=== PATIENT | female | born 1955 | race Caucasian/White ===

== ENCOUNTER → 2023-10-01 08:48 | Outpatient (REF) | payer MEDICARE, BC, SELFPAY ==
[2023-10-01 10:04] LABS: % Basophils 0.6 % (0-2); % Eosinophils 0.9 % (0-6); % Immature Granulocytes 0.1 % (0-0.5); % Lymphocytes 27.5 % (20.5-51.1); % Monocytes 5.5 % (1.7-9.3); % Neutrophils 65.4 % (42.2-75.2); Absolute Eosinophils 0.1 10^3/uL (0-0.7); Absolute Lymphocytes 1.8 10^3/uL (1.2-3.4); Absolute Monocytes 0.4 10^3/uL (0.1-0.6); Absolute Neutrophils 4.4 10^3/uL (1.4-6.5); Hematocrit 47.6 % (37.0-47.0); Hemoglobin 15.7 g/dL (12.0-16.0); Mean Corpuscular Hgb 29.3 pg (27.0-31.0); Mean Platelet Volume 9.5 fL (7.4-10.4); Nucleated Red Blood Cells % 0 %; Platelet Count 241 10^3/uL (130-400); Red Blood Cell Count 5.35 10^6/uL (4.20-5.40); Red Cell Dist. Width 12.5 % (11.5-14.5); White Blood Cell Count 6.7 10^3/uL (4.8-10.8)
[2023-10-01 10:15] LABS: ALT (SGPT) 27 U/L (0-35); AST (SGOT) 29 U/L (14-36); Albumin 4.6 g/dl (3.5-5.0); Alkaline Phosphatase 94 U/L (38-126); Blood Urea Nitrogen 24 mg/dl (7-17); Calcium 9.7 mg/dl (8.4-10.2); Carbon Dioxide 24 mmol/L (22-30); Chloride 106 mmol/L (98-107); GGTP 17 U/L (12-43); Glucose 150 mg/dl (70-99); Potassium 4.4 mmol/L (3.5-5.1); Sodium 139 mmol/L (135-145); Total Bilirubin 0.7 mg/dl (0.2-1.3); Total Protein 7.1 g/dl (6.3-8.2); eGFR > 60.00
[2023-10-01 10:48] LABS: Glycohemoglobin (HgbA1c) 7.9 % (4.0-5.6)
[2023-10-01 11:30] LABS: Erythrocyte Sed Rate 10 mm/hour (0-20)
== END ==
LOC: REG 08:48
PROVIDERS: ATTENDING PHYSICIAN Family Medicine
DX: E11.3213 Type 2 diabetes mellitus with mild nonproliferative diabetic retinopathy with macular edema, bilateral (principal); K76.0 Fatty (change of) liver, not elsewhere classified; M15.9 Polyosteoarthritis, unspecified
CPT/HCPCS: 36415; 80053; 82977; 83036; 83525; 83735; 85025; 85652; 86140

== ENCOUNTER → 2023-12-05 13:12 | Outpatient (REF) | payer MEDICARE, BC, SELFPAY | LOC: RCS 13:12 | PROVIDERS: ATTENDING PHYSICIAN Internal Medicine Interventional Cardiology; FAMILY PHYSICIAN Family Medicine | DX: Z01.818 Encounter for other preprocedural examination (principal); R94.31 Abnormal electrocardiogram [ECG] [EKG] | CPT/HCPCS: 93306 ==

== ENCOUNTER 2023-12-12 09:10 | Inpatient (IN) | payer MEDICARE, BC, SELFPAY ==
--- NOTE | 2023-11-07 11:42 | CM ---
Addendum entered by Toyin Smyth 11/30/23 10:23:
Patient has not yet watched the education video and was reminded to do so.
Original Note:
Patient is scheduled for an elective L TKR on 06/26/23. Spoke with patient prior to surgery via telephone. Introduced role of Orthopedic Navigator. Patient reports that she lives with her and her son (who is developmentally delayed) in a two
story home. There are two steps to enter and a flight of steps to the second floor. She currently functions independently and uses a rolling walker in the house and a cane outside. She has no other DME and has never had VN services. PCP is Amando
Leandra.
Discussed orthopedic program and post surgical plans. Reviewed anticipated length of stay and that goal is for her to return home at discharge. Also reviewed outpatient PT. Patient is in agreement with tentative plan and will go directly to
outpatient PT at [facility]. She will have support from her when she goes home.
Patient will complete online education.
Plan: Orthopedic Navigator will remain available to assist with the care of patient and will reassess discharge needs after surgery.
[2023-11-18 12:37] VITALS: BMI 38.4
[2023-11-18 13:38] LABS: Hematocrit 42.7 % (37.0-47.0); Hemoglobin 14.2 g/dL (12.0-16.0); Mean Corp Hgb Conc. 33.3 g/dL (33.0-37.0); Mean Corpuscular Volume 90.3 fL (81.0-99.0); Mean Platelet Volume 10.8 fL (7.4-10.4); Platelet Count 217 10^3/uL (130-400); Red Blood Cell Count 4.73 10^6/uL (4.20-5.40); Red Cell Dist. Width 12.9 % (11.5-14.5); White Blood Cell Count 8.3 10^3/uL (4.8-10.8)
[2023-11-18 13:48] LABS: ALT (SGPT) 26 U/L (0-35); AST (SGOT) 30 U/L (14-36); Albumin 4.6 g/dl (3.5-5.0); Alkaline Phosphatase 75 U/L (38-126); Blood Urea Nitrogen 24 mg/dl (7-17); Calcium 9.7 mg/dl (8.4-10.2); Carbon Dioxide 23 mmol/L (22-30); Chloride 105 mmol/L (98-107); Estimated Creatinine Clearance 95 ml/min; Glucose 119 mg/dl (70-99); Potassium 4.3 mmol/L (3.5-5.1); Sodium 138 mmol/L (135-145); Total Bilirubin 1.1 mg/dl (0.2-1.3); eGFR > 60.00
--- NOTE | 2023-11-18 14:36 | PTCARENOTE ---
Patients 11/17 ECG abnormal- Syeda @ Dr. Baker office notified
[2023-11-19 09:49] LABS: Glycohemoglobin (HgbA1c) 6.3 % (4.0-5.6)
--- NOTE | 2023-11-22 14:01 | PTCARENOTE ---
Abn ECG, Dr. Wall notified, no further actions requested.
[2023-12-08 09:26] VITALS: BMI 38.4
[2023-12-12] VITALS (15 sets, daily range): BP systolic 89–137; BP diastolic 34–69; PULSE 78; O2SAT 95
[2023-12-12 08:01] LABS: Glucose - Point of Care 178 mg/dl (70-99)
[2023-12-12] MEDS: NORMOSOL-R 1000 IV ×2 (08:02→12:05)
[2023-12-12] MEDS: CELEBREX 200 MG PO (08:02)
[2023-12-12] MEDS: TYLENOL 650 MG PO ×4 (08:02→20:11)
[2023-12-12 11:40] LABS: Glucose - Point of Care 145 mg/dl (70-99)
[2023-12-12] MEDS: ROXICODONE 5 MG PO ×2 (12:07→15:06)
--- NOTE | 2023-12-12 12:39 | W.DS.TRANS ---
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
-
Discharge Instructions:
Sleep Apnea Risk Low
Discharge Diagnosis/Procedures R ZAIRE Baker 12/12/23
Diet Diabetic, Carb Controlled
Activity With Walker
Driving Restrictions No driving
Bathing Restrictions OK to Shower
Other Services PT
Instructions:
Stand-Alone Forms:
Changes to Home Medications: Yes
Discharge Medications:
DC Medications w/original date entered in [employer]
Choleast Red Yeast Rice 1,200 mg PO BID 12/05/23
Nutrafol Womens Balance 4 cap PO DAILY 12/05/23
Vitamin D3 +A +K2+E 5,000 units PO DAILY 12/05/23
blood-glucose sensor ([employer] G7 Sensor device) 12/05/23
empagliflozin 25 mg tablet (Jardiance) 25 mg PO DAILY 12/05/23
escitalopram oxalate 10 mg tablet 10 mg PO DAILY 12/05/23
insulin NPH human semi-syn 100 unit/mL subcutaneous suspension 0 unit SC BID PRN blood glucose 12/05/23
magnesium glycinate 240 mg PO QPM 12/05/23
multivitamin 1 cap PO DAILY 12/05/23
repaglinide 2 mg tablet 4 mg PO TID 12/05/23
zinc 1 cap PO DAILY 12/05/23
Culturelle Probiotics 1 cap PO BID twice a day while on Cefadroxil ##0 12/12/23
aspirin 325 mg tablet 325 mg PO DAILY blood clot prevention #1 tab 12/12/23
cefadroxil 500 mg capsule 500 mg PO BID infection prevention #14 caps 12/12/23
celecoxib 200 mg capsule 200 mg PO DAILY anti-inflammatory #14 caps 12/12/23
docusate sodium 100 mg capsule (Colace) 100 mg PO BID stool softner #1 cap 12/12/23
magnesium hydroxide 400 mg/5 mL oral suspension (Milk of Magnesia) 30 ml PO HS PRN Constipation #1 mL 12/12/23
ondansetron 4 mg disintegrating tablet 4 mg PO Q6H PRN n/v #20 tabs 12/12/23
oxycodone 5 mg tablet 5 mg PO Q6H PRN 1 tab moderate pain, 2 tabs severe pain #30 tabs 12/12/23
Home Medication Changes
cefadroxil 500 mg capsule 500 mg PO BID infection prevention #14 caps 12/12/23�
celecoxib 200 mg capsule 200 mg PO DAILY anti-inflammatory #14 caps 12/12/23�
ondansetron 4 mg disintegrating tablet 4 mg PO Q6H PRN n/v #20 tabs 12/12/23�
oxycodone 5 mg tablet 5 mg PO Q6H PRN 1 tab moderate pain, 2 tabs severe pain #30 tabs 12/12/23�
Pending Results: No
--- NOTE | 2023-12-12 12:43 | PTCARENOTE ---
received patient from PACU, admitted to room 2109. Pt AAOX3. pt denies pain. sensation intact in bilateral lower extremities. Right knee with dressing intact, small amount of old drainage noted, marked. pt denies urge to void at this time.
hypoactive bowel sounds, denies nausea. pt on 2L nasal cannula. lung sounds diminished in bases. see worklist for full nursing assessment.
[2023-12-12] MEDS: LANTUS 0.08 UNITS SC (13:25)
[2023-12-12] MEDS: JARDIANCE 25 MG PO (13:25)
[2023-12-12] MEDS: LEXAPRO 10 MG PO (13:25)
[2023-12-12] MEDS: NEURONTIN 300 MG PO ×2 (15:07→21:59)
[2023-12-12] MEDS: PRANDIN 4 MG PO ×2 (16:59→21:56)
[2023-12-12] MEDS: ASPIRIN 325 MG PO (17:00)
[2023-12-12] MEDS: ANCEF 5 IV (17:00)
[2023-12-12] MEDS: NOVOLOG FLEXPEN-MODERATE RESISTANCE 1 UNITS SC (17:03)
[2023-12-12 17:09] LABS: Glucose - Point of Care 199 mg/dl (70-99)
[2023-12-12] MEDS: DILAUDID 0.5 MG IV (17:15)
[2023-12-12] MEDS: BACTROBAN 2% OINTMENT 1 APPLIC NASAL (20:10)
[2023-12-12] MEDS: SENOKOT 17.2 MG PO (20:10)
[2023-12-12] MEDS: COLACE 100 MG PO (20:10)
[2023-12-12] MEDS: TORADOL 15 MG IV (20:11)
[2023-12-12 21:10] LABS: Glucose - Point of Care 175 mg/dl (70-99)
[2023-12-12] MEDS: PEPCID 20 MG PO (21:59)
[2023-12-13] MEDS: TYLENOL PO (00:32)
[2023-12-13] MEDS: ANCEF 5 IV (01:58)
[2023-12-13 03:39] VITALS: BP 101/57
[2023-12-13] MEDS: TYLENOL 650 MG PO ×3 (04:02→11:17)
[2023-12-13 07:22] LABS: Glucose - Point of Care 126 mg/dl (70-99)
[2023-12-13 07:40] VITALS: BP 99/51
[2023-12-13] MEDS: NOVOLOG FLEXPEN-MODERATE RESISTANCE SC (07:49)
[2023-12-13] MEDS: ASPIRIN 325 MG PO (08:06)
[2023-12-13] MEDS: NEURONTIN 300 MG PO (08:06)
[2023-12-13] MEDS: PRANDIN 4 MG PO (08:06)
[2023-12-13] MEDS: SENOKOT 17.2 MG PO (08:07)
[2023-12-13] MEDS: LANTUS 0.08 UNITS SC (08:07)
[2023-12-13] MEDS: COLACE 100 MG PO (08:07)
[2023-12-13] MEDS: JARDIANCE 25 MG PO (08:07)
[2023-12-13] MEDS: CELEBREX 200 MG PO (08:07)
[2023-12-13] MEDS: LEXAPRO 10 MG PO (08:07)
[2023-12-13] MEDS: TORADOL 15 MG IV (08:07)
[2023-12-13] MEDS: BACTROBAN 2% OINTMENT 1 APPLIC NASAL (08:07)
--- NOTE | 2023-12-13 08:21 | CM ---
Addendum entered by Toyin Smyth 12/13/23 10:18:
Patient did well in therapy. She has no concerns about going home and has updated her .
Original Note:
Reviewed chart and held rounds with PT, OT and nursing. Patient admitted as planned for elective R TKR. Met with patient at bedside. Confirmed information previously obtained for assessment. Also discussed discharge plans. The plan is for patient to
return home at discharge. Her will be home with her for a week. Patient will go directly to outpatient PT and will go to [facility]. She has an appointment scheduled for Tuesday, 12/13.
Patient has all needed DME.
She will use [facility] pharmacy if additional discharge prescriptions are needed.
[2023-12-13 09:30] VITALS: BP 118/55; PULSE 91; O2SAT 94
[2023-12-13 10:09] VITALS: BP 131/60; PULSE 89; O2SAT 94
--- NOTE | 2023-12-13 10:19 | W.PN.ORTHO ---
Today's Communication / Plan
-
d/c
Assessment
.
Distal Motor Intact: Yes
Dressing:
Clean, dry and intact.
Assessment:
Deoclccoavn-bzh-Aavcjwybf x1 dose + NSS IVF bolus prior to d/c to prevent orthostasis at home given need for opioid
Plan
.
Surgery / Date: James Baker 12/12/23
DVT Prophylaxis: Aspirin
Activity:
Out of bed.
PT/OT
Discharge Plan: Home w/ Outpatient PT
Subjective
.
.:
Patient resting comfortably.
Vital Signs and Labs
.
Vital Signs and Labs:
Lab Results
11/18/23 12:28
11/18/23 12:28
Temp Pulse Resp BP Pulse Ox
97.9 F 97 20 99/51 99
12/13/23 07:40 12/13/23 07:40 12/13/23 07:40 12/13/23 07:40 12/13/23 07:40
Non-invasive Hgb result: 12.6
Physical Exam
-
HEENT: No pallor, cyanosis, or jaundice. Throat clear.
NECK: Supple. No JVD.
RESPIRATORY: Lungs clear to auscultation.
CVS: S1, S2 normal. RRR.� No murmur, rub or gallop.
ABDOMEN: Soft, non-tender. No distension. BS+/normal.
EXTREMITIES: strength equal, no calf pain with palpation
BORDER MEASURER: AOx3. No focal deficits. 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
[2023-12-13] MEDS: ProAmatine 5 MG PO (10:36)
[2023-12-13] MEDS: NSS 250 IV (10:37)
[2023-12-13 11:04] VITALS: BP 137/63
[2023-12-13] MEDS: ROXICODONE 5 MG PO (11:17)
[2023-12-13 12:11] LABS: Glucose - Point of Care 219 mg/dl (70-99)
== END 2023-12-13 12:13 | disposition home or self-care (01) | DRG 470 ==
LOC: 2 SOUTH 09:10
PROVIDERS: Anesthesiology; ADMITTING PHYSICIAN Specialist; FAMILY PHYSICIAN Family Medicine
PROC: 0SRC0J9 Replacement of Right Knee Joint with Synthetic Substitute, Cemented, Open Approach (ICD-10-PCS; 2023-12-12)
PROC: 3E0T3BZ Introduction of Anesthetic Agent into Peripheral Nerves and Plexi, Percutaneous Approach (ICD-10-PCS; 2023-12-12)
DX: M17.11 Unilateral primary osteoarthritis, right knee (principal); Z68.36 Body mass index [BMI] 36.0-36.9, adult; E66.9 Obesity, unspecified; E78.5 Hyperlipidemia, unspecified; E11.9 Type 2 diabetes mellitus without complications; K21.9 Gastro-esophageal reflux disease without esophagitis; K76.0 Fatty (change of) liver, not elsewhere classified; M81.0 Age-related osteoporosis without current pathological fracture; I95.9 Hypotension, unspecified; Z79.82 Long term (current) use of aspirin
CPT/HCPCS: 36415; 73560; 80053; 82962; 83036; 85027; 87070; 93005; 97110; 97116; 97162; 97166; 97530; C1713; C1776

== ENCOUNTER → 2024-02-04 09:10 | Outpatient (REF) | payer MEDICARE, BC, SELFPAY ==
[2024-02-04 10:24] LABS: % Basophils 0.6 % (0-2); % Immature Granulocytes 0.4 % (0-0.5); % Lymphocytes 18.1 % (20.5-51.1); % Monocytes 7.2 % (1.7-9.3); % Neutrophils 72.7 % (42.2-75.2); Absolute Eosinophils 0.1 10^3/uL (0-0.7); Absolute Lymphocytes 1.3 10^3/uL (1.2-3.4); Absolute Monocytes 0.5 10^3/uL (0.1-0.6); Absolute Neutrophils 5.2 10^3/uL (1.4-6.5); Hematocrit 43.8 % (37.0-47.0); Hemoglobin 14.5 g/dL (12.0-16.0); Mean Corp Hgb Conc. 33.1 g/dL (33.0-37.0); Mean Corpuscular Hgb 30.2 pg (27.0-31.0); Mean Corpuscular Volume 91.3 fL (81.0-99.0); Mean Platelet Volume 10.3 fL (7.4-10.4); Nucleated Red Blood Cells % 0 %; Platelet Count 262 10^3/uL (130-400); Red Cell Dist. Width 12.6 % (11.5-14.5); White Blood Cell Count 7.1 10^3/uL (4.8-10.8)
[2024-02-04 10:48] LABS: ALT (SGPT) 16 U/L (0-35); AST (SGOT) 26 U/L (14-36); Albumin 4.6 g/dl (3.5-5.0); Alkaline Phosphatase 70 U/L (38-126); Blood Urea Nitrogen 21 mg/dl (7-17); Carbon Dioxide 20 mmol/L (22-30); Chloride 104 mmol/L (98-107); Glucose 150 mg/dl (70-99); HDL Cholesterol 56 mg/dl; LDL Cholesterol, Calculated 150 mg/dl; Sodium 142 mmol/L (135-145); Total Bilirubin 0.9 mg/dl (0.2-1.3); Total Cholesterol 226 mg/dl (50-199); Triglyceride 103 mg/dl (10-149); Very Low Density Lipoprotein 20 mg/dl (0-30); eGFR > 60.00
[2024-02-04 13:24] LABS: Glycohemoglobin (HgbA1c) 5.7 % (4.0-5.6)
[2024-02-06 16:33] LABS: Insulin, Random 19 uIU/mL
== END ==
LOC: REG 09:10
PROVIDERS: ATTENDING PHYSICIAN Family Medicine
DX: E11.3213 Type 2 diabetes mellitus with mild nonproliferative diabetic retinopathy with macular edema, bilateral (principal); E78.2 Mixed hyperlipidemia
CPT/HCPCS: 36415; 80053; 80061; 83036; 83525; 85025

== ENCOUNTER → 2024-02-14 11:52 | Outpatient (REF) | payer MEDICARE, BC, SELFPAY ==
[2024-02-14 14:14] LABS: Fibrinogen 466 MG/DL (199-459)
[2024-02-14 14:17] LABS: D-Dimer 1.95 ug/mlFEU (0.00-0.50)
== END ==
LOC: REG 11:52
PROVIDERS: ATTENDING PHYSICIAN Family Medicine
DX: I80.01 Phlebitis and thrombophlebitis of superficial vessels of right lower extremity (principal)
CPT/HCPCS: 36415; 85379; 85384

== ENCOUNTER → 2024-06-04 06:33 | Outpatient (REF) | payer MEDICARE, BC, SELFPAY | LOC: MRI 3T 06:33 | PROVIDERS: ATTENDING PHYSICIAN Orthopaedic Surgery; FAMILY PHYSICIAN Family Medicine | DX: M25.512 Pain in left shoulder (principal) | CPT/HCPCS: 73221 ==

== ENCOUNTER 2024-07-22 12:38 | Emergency (ER) | payer MEDICARE, BC, SELFPAY ==
[2024-07-22 12:44] VITALS: BP 148/76
--- NOTE | 2024-07-22 14:22 | ED.GENMED ---
History of Present Illness
General
Chief Complaint: Back Pain
Source: patient
Exam Limitations: none
Time Seen by Provider: 07/22/24 14:03
History of Present Illness
History of Present Illness:
69yoF with a history of type 2 diabetes and obesity presenting with her for evaluation of back pain. She had a fall 6 days ago in which she slipped in the kitchen and landed on her back. She struck her head but denies any loss of
consciousness. She has been having significant lower back pain since the fall. She is having difficulty getting around and she has been using a walker due to her pain. Her has also been assisting her with position changes. Patient also
endorses lower abdominal pain and constipation. She also reports pain in her lower ribs bilaterally and is having pain with coughing. She was initially taking Tylenol without relief. She has been taking leftover Vicodin the past few days with some
improvement. She denies any difficulty urinating, incontinence, fevers.
Past History
Past History
ED Past Medical History: IDDM
ED Past Surgical History: Appendectomy and Cholecystectomy
Social History
Tobacco: Non-smoker
Alcohol: None
Personal:
Living: with family
Phy Exam
General Physical Exam
General Presentation: well appearing
General age: appears stated age
General Skin: warm and dry
General Habitus: normal
General Mental: alert
ENT Exam
ENT Exam: normocephalic
Additional ENT: No external signs of head trauma
Pulmonary Exam
Pulmonary Exam: lungs clear, no respiratory distress, no rales, no crackles, no rhonchi and other (+Tenderness to lower ribcage bilaterally. No crepitus or skin changes. Breath sounds equal bilaterally.)
Gastrointestinal Exam
Gastrointestinal Exam: soft, non distended and other (+Mild lower abdominal tenderness. Abdomen soft, non-distended. No rebound or guarding.)
Neurological Exam
Neurological Exam: alert
[place] Coma Scale
Eye Opening: Spontaneous
Verbal Response: Oriented
Motor Response: Obeys Commands
GCS Total Score: 15
Musculoskeletal Exam
Musculoskeletal Exam: other (+Lumbar spine tenderness without step-offs)
Skin Exam
Skin Exam: normal color and warm/dry
Psychiatric Exam
Psychiatric Exam: normal mood/affect
Course
Orders/Labs/Results
Orders:
Orders
07/22/24 14:21
CT Abd/pelvis W Iv Cont Urgent
Comment:
Reason For Exam: Low back pain, lower abd pain s/p fall
HYDROmorphone [Dilaudid] 0.5 mg IV NOW STA
Hip, Right 2-3 Views [CR Hip - RT w/wo Pel 2-3 Vw*] Urgent
Comment:
Reason For Exam: R hip pain, fall
Include a pelvis x-ray?: Yes
07/22/24 14:22
CR Chest - 2 Views Urgent
Comment:
Reason For Exam: bilateral lower rib pain, fall
07/22/24 14:35
Complete Blood Count/With Diff Urgent
Comprehensive Metabolic Panel Urgent
07/22/24 17:36
Incentive Spirometry [Rx Incentive Spirometry] [RESP] Urgent
Frequency: q1h while awake
Abnormal Lab Results
07/22/24
14:35
Abs Immat Gran (auto) 0.1 H 10^3/uL
(0-0.05)
Immature Gran % 0.6 H %
(0-0.5)
Lymphocytes % 18.6 L %
(20.5-51.1)
BUN 22 H mg/dl
(7-17)
Glucose 106 H mg/dl
(70-99)
Total Bilirubin 1.4 H mg/dl
(0.2-1.3)
07/22/24 14:35
07/22/24 14:35
Vital Signs
Initial and Last Documented VS:
Initial Vital Signs
Temp Pulse Resp BP Pulse Ox
98.2 F 99 18 148/76 98
07/22/24 12:44 07/22/24 12:44 07/22/24 12:44 07/22/24 12:44 07/22/24 12:44
Last Documented Vital Signs
Temp Pulse Resp BP Pulse Ox
98.2 F 99 18 148/76 98
07/22/24 12:44 07/22/24 12:44 07/22/24 12:44 07/22/24 12:44 07/22/24 12:44
MDM/Problems Addressed
Differential Diagnosis Includes:
69yoF here after a mechanical fall 6 days ago. Landed on back. Multiple complaints but most of her pain is located in the lumbar region. VSS. There is lumbar tenderness on exam without step-offs or skin changes. Differential diagnosis includes but
is not limited to: soft tissue injury, fracture, intra-abdominal injury
Initial ED plan: Check CBC, CMP, CXR, R hip x-rays, and CT abdomen. IV Dilaudid for pain.
*Critical Care Note
Total Time (30-74mins, 75-104mins- exclusive of procedures): Not Applicable
Update Note
Update Note:
CT abdomen shows mild partial L1 and L2 superior endplate compression fractures which are age indeterminate but likely old. No other traumatic injuries on CT. CXR reveals 'Small ill-defined opacity in the right midlung which could represent
subsegmental atelectasis/pulmonary contusion and cannot exclude adjacent right lateral rib fracture.' Oxygen saturation 98% on room air and injury was almost a week ago, no indication for chest CT at this time as it is unlikely to change advisor.
Pain improved on reassessment and she was able to ambulate to the bathroom with assistance from her . No indication for hospitalization. Incentive spirometer provided and prescription given for Vicodin. She was advised to f/u with her PCP and
orthopedics. Patient in agreement with plan and was discharged in stable condition.
ED Attending Note
-
Portions of this chart may have been created with voice recognition software.� Occasional wrong word or��sound alike� substitutions may have occurred due to the inherent limitations of voice recognition software.
Discharge Plan
Departure
Patient Disposition: Home (Routine Discharge)
Date of Disposition: 07/22/24
Time of Disposition: 17:35
Patient with high blood pressure during this ER visit?: Yes
Discharge Problem:
Fall from slip, trip, or stumble, Acute low back pain, Closed fracture of rib of right side
Instructions: Low Back Pain (DC), Rib fracture or bruised rib - ED discharge instructions
Prescriptions:
New
hydrocodone-acetaminophen 5-325 mg tablet
1 tab PO Q6H PRN (Reason: Pain) Qty: 12 0RF
No Action
repaglinide 2 mg Tablet
4 mg PO TID
Rx Instructions:
15 to 30 minutes before meals
multivitamin Capsule
1 cap PO DAILY
Rx Instructions:
after breakfast
insulin NPH human semi-syn 100 unit/mL Suspension
0 unit SC BID PRN (Reason: blood glucose)
Rx Instructions:
Breakfast and Dinner dosing based on need
escitalopram oxalate 10 mg Tablet
10 mg PO DAILY
(DME) Dexcom G7 Sensor Device
MISCELLANEOUS
Jardiance 25 mg Tablet
25 mg PO DAILY
Choleast Red Yeast Rice 600 mg capsule
1,200 mg PO BID
Rx Instructions:
with food
Nutrafol Womens Balance
4 cap PO DAILY
Rx Instructions:
after breakfast
Vitamin D3 +A +K2+E
5,000 units PO DAILY
magnesium glycinate 120 mg capsule
240 mg PO QPM
zinc 54 mg capsule
1 cap PO DAILY
Rx Instructions:
after breakfast
celecoxib 200 mg capsule
200 mg PO DAILY Qty: 14 0RF
Rx Instructions:
*take with food
*space out 2 hours from aspirin
aspirin 325 mg tablet
325 mg PO DAILY Qty: 1 0RF
Rx Instructions:
Take with food
cefadroxil 500 mg capsule
500 mg PO BID Qty: 14 0RF
Rx Instructions:
*Take w/ food
*Take w/ probiotic
*POST-OP USE
magnesium hydroxide [Milk of Magnesia] 400 mg/5 mL suspension
30 ml PO HS PRN (Reason: Constipation) Qty: 1 0RF
docusate sodium [Colace] 100 mg capsule
100 mg PO BID Qty: 1 0RF
ondansetron [ondansetron] 4 mg tablet,disintegrating
4 mg PO Q6H PRN (Reason: n/v) Qty: 20 0RF
Rx Instructions:
take 1/2h b/f pain med if recurrent nausea
allow to dissolve in mouth w/o water
oxycodone 5 mg tablet
5 mg PO Q6H PRN (Reason: 1 tab moderate pain, 2 tabs severe pain) Qty: 30 0RF
Rx Instructions:
Ongoing therapy
Culturelle Probiotics
1 cap PO BID Qty: 0 0RF
Rx Instructions:
after breakfast
Referrals:
Amando Mobley DO [Family Provider] -
León Rose MD [Active] -
Activity Restrictions/Additional Instructions:
Take Vicodin as needed for severe pain. Use incentive spirometer every hour while awake.
Please call tomorrow to schedule follow-up appointments with your family doctor and orthopedics. Return to the ER with any new or worsening symptoms.
Interventions
Interventions:
*Risk Screen - Suicide Last Done: 07/22/24 12:44
*General Assessment Last Done: 07/22/24 12:44
*ED COVID-19 Vaccine History Last Done: 07/22/24 12:44
*Nursing Disposition Last Done: 07/22/24 18:08
ED-Musculoskeletal Assessment Last Done: 07/22/24 15:00
Discharge Date and Time
Discharge Date/Time: 07/22/24 18:08
Print Language: [place]
[2024-07-22] MEDS: DILAUDID 0.5 MG IV (14:28)
[2024-07-22 15:00] LABS: % Basophils 0.5 % (0-2); % Eosinophils 0.9 % (0-6); % Immature Granulocytes 0.6 % (0-0.5); % Lymphocytes 18.6 % (20.5-51.1); % Neutrophils 72.4 % (42.2-75.2); Absolute Eosinophils 0.1 10^3/uL (0-0.7); Absolute Immature Granulocytes 0.1 10^3/uL (0-0.05); Absolute Lymphocytes 1.6 10^3/uL (1.2-3.4); Absolute Monocytes 0.6 10^3/uL (0.1-0.6); Absolute Neutrophils 6.1 10^3/uL (1.4-6.5); Hemoglobin 15.6 g/dL (12.0-16.0); Mean Corp Hgb Conc. 33.2 g/dL (33.0-37.0); Mean Corpuscular Hgb 29.5 pg (27.0-31.0); Mean Corpuscular Volume 88.8 fL (81.0-99.0); Mean Platelet Volume 9.6 fL (7.4-10.4); Nucleated Red Blood Cells % 0 %; Platelet Count 189 10^3/uL (130-400); Red Blood Cell Count 5.29 10^6/uL (4.20-5.40); Red Cell Dist. Width 13.2 % (11.5-14.5); White Blood Cell Count 8.5 10^3/uL (4.8-10.8)
[2024-07-22 15:02] LABS: Albumin 4.3 g/dl (3.5-5.0); Carbon Dioxide 25 mmol/L (22-30)
[2024-07-22 15:13] LABS: ALT (SGPT) 18 U/L (0-35); AST (SGOT) 22 U/L (14-36); Alkaline Phosphatase 66 U/L (38-126); Blood Urea Nitrogen 22 mg/dl (7-17); Chloride 102 mmol/L (98-107); Glucose 106 mg/dl (70-99); Potassium 4.1 mmol/L (3.5-5.1); Sodium 140 mmol/L (135-145); Total Bilirubin 1.4 mg/dl (0.2-1.3); Total Protein 7.1 g/dl (6.3-8.2); eGFR > 60.00
== END 2024-07-22 18:08 | disposition home or self-care (01) ==
LOC: EMR 12:38
PROVIDERS: Physician Assistant; EMERGENCY PHYSICIAN Emergency Medicine; FAMILY PHYSICIAN Family Medicine
DX: S22.31XA Fracture of one rib, right side, initial encounter for closed fracture (principal); M54.50 Low back pain, unspecified; R10.30 Lower abdominal pain, unspecified; W01.0XXA Fall on same level from slipping, tripping and stumbling without subsequent striking against object, initial encounter; E11.9 Type 2 diabetes mellitus without complications; Z79.4 Long term (current) use of insulin; Z90.49 Acquired absence of other specified parts of digestive tract
CPT/HCPCS: 96374; 99284; 71046; 73502; 74177; 80053; 85025; Q9967

== ENCOUNTER → 2024-07-24 14:59 | Outpatient (REF) | payer MEDICARE, BC, SELFPAY | LOC: RAD 14:59 | PROVIDERS: ATTENDING PHYSICIAN Family Medicine | DX: S22.31XD Fracture of one rib, right side, subsequent encounter for fracture with routine healing (principal); R10.2 Pelvic and perineal pain | CPT/HCPCS: 71100; 72190 ==

== ENCOUNTER → 2024-07-25 15:54 | Outpatient (REF) | payer MEDICARE, BC, SELFPAY | LOC: MRI 3T 15:54 | PROVIDERS: ATTENDING PHYSICIAN Family Medicine | DX: S32.000D Wedge compression fracture of unspecified lumbar vertebra, subsequent encounter for fracture with routine healing (principal); M54.17 Radiculopathy, lumbosacral region | CPT/HCPCS: 72148 ==

== ENCOUNTER → 2024-08-02 07:11 | Outpatient (REF) | payer MEDICARE, BC, SELFPAY ==
[2024-08-02 08:51] LABS: ALT (SGPT) 34 U/L (0-35); AST (SGOT) 26 U/L (14-36); Albumin 4.2 g/dl (3.5-5.0); Alkaline Phosphatase 113 U/L (38-126); Blood Urea Nitrogen 22 mg/dl (7-17); Calcium 9.7 mg/dl (8.4-10.2); Carbon Dioxide 24 mmol/L (22-30); Chloride 106 mmol/L (98-107); Glucose 145 mg/dl (70-99); Potassium 4.5 mmol/L (3.5-5.1); Sodium 141 mmol/L (135-145); Total Bilirubin 0.9 mg/dl (0.2-1.3); Total Protein 6.6 g/dl (6.3-8.2); eGFR > 60.00
[2024-08-02 09:11] LABS: Fibrinogen 557 MG/DL (199-459)
[2024-08-02 09:14] LABS: D-Dimer 1.23 ug/mlFEU (0.00-0.50)
[2024-08-02 13:32] LABS: LDL Cholesterol, Direct 154 mg/dl
== END ==
LOC: REG 07:11
PROVIDERS: ATTENDING PHYSICIAN Family Medicine
DX: E11.3213 Type 2 diabetes mellitus with mild nonproliferative diabetic retinopathy with macular edema, bilateral (principal); E78.2 Mixed hyperlipidemia; I80.01 Phlebitis and thrombophlebitis of superficial vessels of right lower extremity
CPT/HCPCS: 36415; 80053; 83721; 85379; 85384

== ENCOUNTER 2024-10-03 06:21 | Day surgery (SDC) | payer MEDICARE, BC, SELFPAY ==
[2024-10-03 07:46] LABS: Glucose - Point of Care 145 mg/dl (70-99)
== END 2024-10-03 09:43 | disposition home or self-care (01) ==
LOC: GI 06:21
PROVIDERS: ATTENDING PHYSICIAN Surgery
DX: Z12.11 Encounter for screening for malignant neoplasm of colon (principal); Z86.0100 Personal history of colon polyps, unspecified; K64.9 Unspecified hemorrhoids
CPT/HCPCS: G0105; 82962

== ENCOUNTER → 2024-11-21 07:35 | Outpatient (REF) | payer MEDICARE, BC, SELFPAY ==
[2024-11-21 08:43] LABS: Hematocrit 46.2 % (37.0-47.0); Hemoglobin 15.0 g/dL (12.0-16.0); Mean Corp Hgb Conc. 32.5 g/dL (33.0-37.0); Mean Corpuscular Volume 90.6 fL (81.0-99.0); Nucleated Red Blood Cells % 0 %; Platelet Count 221 10^3/uL (130-400); Red Cell Dist. Width 13.0 % (11.5-14.5)
[2024-11-21 08:52] LABS: INR 0.89; PT 12.6 Sec (11.4-14.6)
[2024-11-21 08:53] LABS: APTT 27.5 Sec (23.4-35.0); Fibrinogen 546 MG/DL (199-459)
[2024-11-21 08:59] LABS: D-Dimer 0.68 ug/mlFEU (0.00-0.50)
[2024-11-21 09:17] LABS: ALT (SGPT) 19 U/L (0-35); AST (SGOT) 22 U/L (14-36); Albumin 4.7 g/dl (3.5-5.0); Alkaline Phosphatase 74 U/L (38-126); Blood Urea Nitrogen 21 mg/dl (7-17); Calcium 9.7 mg/dl (8.4-10.2); Carbon Dioxide 23 mmol/L (22-30); Chloride 111 mmol/L (98-107); Glucose 157 mg/dl (70-99); HDL Cholesterol 66 mg/dl; LDL Cholesterol, Calculated 155 mg/dl; Potassium 4.8 mmol/L (3.5-5.1); Sodium 142 mmol/L (135-145); Total Protein 7.0 g/dl (6.3-8.2); Very Low Density Lipoprotein 19 mg/dl (0-30); eGFR > 60.00
[2024-11-21 09:29] LABS: Microalb - Urine Creatinine 56.500 mg/dl
[2024-11-21 09:39] LABS: Microalbumin, Random Urine <0.6 mg/dl (0.6-1.7)
[2024-11-21 10:07] LABS: Glycohemoglobin (HgbA1c) 5.9 % (4.0-5.6)
[2024-11-21 10:08] LABS: GGTP 14 U/L (12-43)
== END ==
LOC: REG 07:35
PROVIDERS: ATTENDING PHYSICIAN Internal Medicine Hematology & Oncology; FAMILY PHYSICIAN Family Medicine
DX: D58.9 Hereditary hemolytic anemia, unspecified (principal); D68.8 Other specified coagulation defects; E11.3213 Type 2 diabetes mellitus with mild nonproliferative diabetic retinopathy with macular edema, bilateral; K76.0 Fatty (change of) liver, not elsewhere classified
CPT/HCPCS: 36415; 80053; 80061; 82043; 82570; 82977; 83036; 83525; 85025; 85240; 85245; 85246; 85247; 85379; 85384; 85610; 85730

== ENCOUNTER → 2025-03-07 07:12 | Outpatient (REF) | payer MEDICARE, BC, SELFPAY ==
[2025-03-07 08:59] LABS: Glycohemoglobin (HgbA1c) 6.6 % (4.0-5.6)
[2025-03-07 10:43] LABS: ALT (SGPT) 22 U/L (0-35); AST (SGOT) 25 U/L (14-36); Albumin 4.6 g/dl (3.5-5.0); Alkaline Phosphatase 74 U/L (38-126); Blood Urea Nitrogen 25 mg/dl (7-17); Calcium 9.4 mg/dl (8.4-10.2); Carbon Dioxide 24 mmol/L (22-30); Chloride 108 mmol/L (98-107); Glucose 134 mg/dl (70-99); Magnesium 2.1 mg/dl (1.6-2.3); Potassium 4.6 mmol/L (3.5-5.1); Sodium 142 mmol/L (135-145); Total Protein 7.0 g/dl (6.3-8.2); eGFR > 60.00
[2025-03-07 10:53] LABS: LDL Cholesterol, Direct 114 mg/dl
== END ==
LOC: REG 07:12
PROVIDERS: ATTENDING PHYSICIAN Family Medicine
DX: E11.3213 Type 2 diabetes mellitus with mild nonproliferative diabetic retinopathy with macular edema, bilateral (principal); E78.2 Mixed hyperlipidemia
CPT/HCPCS: 36415; 80053; 83036; 83525; 83721; 83735

== ENCOUNTER 2025-05-09 06:43 | Day surgery (SDC) | payer MEDICARE, BC, SELFPAY ==
[2025-05-03 13:20] VITALS: BMI 37.7
[2025-05-09] VITALS (9 sets, daily range): BP systolic 99–132; BP diastolic 46–85; BMI 37.7
[2025-05-09] MEDS: NORMOSOL-R/PLASMALYTE-A 1000 IV (12:55)
[2025-05-09 12:59] LABS: Glucose - Point of Care 124 mg/dl (70-99)
[2025-05-09 14:35] LABS: Glucose - Point of Care 102 mg/dl (70-99)
[2025-05-09 16:11] LABS: Glucose - Point of Care 132 mg/dl (70-99)
[2025-05-09] MEDS: DILAUDID 0.5 MG IV ×2 (16:25→16:46)
== END 2025-05-09 18:05 | disposition home or self-care (01) ==
LOC: SDS 06:43
PROVIDERS: ATTENDING PHYSICIAN Surgery; FAMILY PHYSICIAN Family Medicine
DX: K64.2 Third degree hemorrhoids (principal); K64.4 Residual hemorrhoidal skin tags
CPT/HCPCS: 46947; 82962; 88304; 93005